=== PATIENT | female | born 1970 | race Caucasian/White ===

== ENCOUNTER 2020-07-22 20:01 | Emergency (ER) | payer MEDICAID ==
[~2020-07-22] VITALS: Ht 167.6 cm; Wt 122.5 kg
[2020-07-22] MEDS ORDERED: TESSALON PERLE100 MG ORAL (20:17)
[2020-07-22] MEDS ORDERED: ACETAMINOPHEN500 M3 ORAL (20:17)
--- NOTE | 2020-07-22 20:20 | NUR ---
Note basiliaone in EDM - 07/22/20 at 2310 by [email or web address] ED Nurse Note: Patient walked into the ED from home with c/o generalized body aches onset 3 days ago. Pt has hx of hypertension and diabetes but was not med compliant because of meds running out due to insurance. Patient denies SOB//CP, fever/chills, N/V/D. Patient is AAOx4 and ambulatory. Triage BP 218/1145 Patient walked into ED c/o general body aches onset for the past 3 days now. denies any fevers or chills. blood pressure currently at 218/115, states that she has been unable to take BP meds for quite some time due to running out
--- NOTE | 2020-07-22 20:20 | NUR ---
ED Nurse Note: Patient walked into the ED from home with c/o generalized body aches onset 3 days ago. Pt has hx of hypertension and diabetes but was not med compliant because of meds running out due to insurance. Patient denies SOB//CP, fever/chills, N/V/D. Patient is AAOx4 and ambulatory. Triage BP 218/145, BS 268.
--- NOTE | 2020-07-22 20:21 | NUR ---
ED Nurse Note: ERMD at bedside
[2020-07-22 20:30] VITALS: BP 156/84
--- NOTE | 2020-07-22 20:30 | NUR ---
ED Nurse Note: Blood and urine sent
[2020-07-22] MEDS ORDERED: Ketorolac 30mg Inj IV ONE (20:45)
[2020-07-22] MEDS ORDERED: Labetalol 5mg/ml 20ml vial IV ONE (20:45)
--- NOTE | 2020-07-22 21:01 | Diagnostic Imaging Report ---
EXAM: XR Chest, 1 View CLINICAL HISTORY: CP TECHNIQUE: Frontal view of the chest. COMPARISON: No relevant prior studies available. FINDINGS: Lungs: Low lung volumes with bronchovascular crowding. No consolidation, pleural effusion, or pneumothorax. Pleural space: See above. Heart: Cardiomegaly. Mediastinum: Unremarkable. Bones/joints: No acute abnormality IMPRESSION: 1. Low lung volumes with bronchovascular crowding. 2. Cardiomegaly. 3. Otherwise no acute cardiopulmonary disease. 4. If there is continued concern, consider frontal and lateral chest radiographs or CT.
[2020-07-22 21:03] LABS: BASOPHILS % (AUTO) 1.1 % (0.0-2.0); EOSINOPHILS % (AUTO) 0.4 % (0.0-3.0); HEMATOCRIT 46.4 % (37.0-47.0); HEMOGLOBIN 16.8 G/DL (12.0-16.0); LYMPHOCYTES % (AUTO) 21.6 % (20.0-45.0); MEAN CORPUSCULAR VOLUME 85 FL (80-99); MONOCYTES % (AUTO) 10.9 % (1.0-10.0); PLATELET COUNT 125 K/UL (150-450); RED BLOOD COUNT 5.45 M/UL (4.20-5.40); RED CELL DISTRIBUTION WIDTH 12.6 % (11.6-14.8); WHITE BLOOD COUNT 4.2 K/UL (4.8-10.8)
[2020-07-22 21:04] LABS: BILIRUBIN, URINE NEGATIVE (NEGATIVE); GLUCOSE, URINE (UA) 3+ (NEGATIVE); KETONES,URINE 1+ (NEGATIVE); LEUKOCYTE ESTERASE ,URINE 2+ (NEGATIVE); NITRITE,URINE NEGATIVE (NEGATIVE); PH,URINE 6 (4.5-8.0); PROTEIN,URINE 4+ (NEGATIVE); UROBILINOGEN,URINE NORMAL MG/DL (0.0-1.0)
[2020-07-22 21:07] LABS: APPEARANCE,URINE SLIGHTLY CLOUDY; COLOR,URINE YELLOW
[2020-07-22 21:14] LABS: ANION GAP 6 mmol/L (5-15); BLOOD UREA NITROGEN 17 mg/dL (7-18); CALCIUM 8.9 MG/DL (8.5-10.1); CARBON DIOXIDE 31 MMOL/L (21-32); CHLORIDE 93 MMOL/L (98-107); CREATININE 0.8 MG/DL (0.55-1.30); POTASSIUM 3.7 MMOL/L (3.5-5.1); SODIUM 130 MMOL/L (136-145)
[2020-07-22] MEDS ORDERED: cefTRIAXone 1 GM in NS 55 ML IVPB ONE (21:15)
--- NOTE | 2020-07-22 21:15 | Emergency Room Report ---
History of Present Illness General Chief Complaint: General Complaint Source: Patient Present Illness HPI 49-year-old female with history of type 2 diabetes and hypertension here with 1 week of generalized malaise. Patient says that she has felt unwell for 1 week but it worsened today. Patient is positive metformin and several antihypertensives but does not take these medications secondary to a loss of insurance. Has not taken her medications in several months. Says she is only complaining of generalized malaise. 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 No fevers, chills, chest pain, palpitations, shortness breath, cough, back pain, abdominal pain, nausea, vomiting, diarrhea, dysuria. Allergies: Coded Allergies: No Known Allergies (Unverified , 07/22/20) COVID-19 Screening Contact w/high risk pt: No Experienced COVID-19 symptoms?: No COVID-19 Testing performed CAR KNOCKER: No Patient History Last Menstrual Period: n/a Nursing Documentation-H Past Medical History: No History, Except For Hx Hypertension: Yes Hx Diabetes: Yes Hx Cancer: Yes - ovarian Review of Systems All Other Systems: negative except mentioned in HPI Physical Exam Vital Signs Date Time Temp Pulse Resp B/P (MAP) Pulse Ox O2 Delivery O2 Flow Rate FiO2 07/22/20 20:16 99.3 80 18 218/115 (149) 93 Room Air Sp02 EP Interpretation: reviewed, normal General Appearance: no apparent distress, alert, non-toxic Head: normocephalic, atraumatic Eyes: bilateral eye normal inspection, bilateral eye PERRL ENT: hearing grossly normal, normal pharynx, no angioedema, normal voice Neck: full range of motion, supple/symm/no masses Respiratory: chest non-tender, lungs clear, normal breath sounds, speaking full sentences Cardiovascular #1: regular rate, rhythm, no edema Cardiovascular #2: 2+ carotid (R), 2+ carotid (L), 2+ radial (R), 2+ radial (L), 2+ dorsalis pedis (R), 2+ dorsalis pedis (L) Gastrointestinal: normal bowel sounds, non tender, soft, non-distended, no guarding, no rebound Rectal: deferred Genitourinary: normal inspection, no CVA tenderness Musculoskeletal: back normal, normal range of motion, gait/station normal, non- tender Neurologic: alert, motor strength/tone normal, oriented x3, sensory intact, responsive, speech normal Psychiatric: judgement/insight normal, memory normal, mood/affect normal, no suicidal/homicidal ideation Lymphatic: no adenopathy Medical Decision Making Diagnostic Impression: Primary Impression: Flu-like symptoms Additional Impressions: COVID-19 Hypertension UTI (urinary tract infection) ER Course Laboratory Tests Test 07/22/20 20:35 White Blood Count 4.2 K/UL (4.8-10.8) L Red Blood Count 5.45 M/UL (4.20-5.40) H Hemoglobin 16.8 G/DL (12.0-16.0) H Hematocrit 46.4 % (37.0-47.0) Mean Corpuscular Volume 85 FL (80-99) Mean Corpuscular Hemoglobin 30.9 PG (27.0-31.0) Mean Corpuscular Hemoglobin Concent 36.3 G/DL (32.0-36.0) H Red Cell Distribution Width 12.6 % (11.6-14.8) Platelet Count 125 K/UL (150-450) L Mean Platelet Volume 8.7 FL (6.5-10.1) Neutrophils (%) (Auto) 66.0 % (45.0-75.0) Lymphocytes (%) (Auto) 21.6 % (20.0-45.0) Monocytes (%) (Auto) 10.9 % (1.0-10.0) H Eosinophils (%) (Auto) 0.4 % (0.0-3.0) Basophils (%) (Auto) 1.1 % (0.0-2.0) Urine Color Yellow Urine Appearance Slightly cloudy Urine pH 6 (4.5-8.0) Urine Specific [place] 1.015 (1.005-1.035) Urine Protein 4+ (NEGATIVE) H Urine Glucose (UA) 3+ (NEGATIVE) H Urine Ketones 1+ (NEGATIVE) H Urine Blood 1+ (NEGATIVE) H Urine Nitrite Negative (NEGATIVE) Urine Bilirubin Negative (NEGATIVE) Urine Urobilinogen Normal MG/DL (0.0-1.0) Urine Leukocyte Esterase 2+ (NEGATIVE) H Urine RBC 2-4 /HPF (0 - 2) H Urine WBC 15-20 /HPF (0 - 2) H Urine Squamous Epithelial Cells Moderate /LPF (NONE/OCC) H Urine Bacteria Moderate /HPF (NONE) H Urine Yeast Few /HPF (NONE) H Urine HCG, Qualitative Negative (NEGATIVE) Sodium Level 130 MMOL/L (136-145) L Potassium Level 3.7 MMOL/L (3.5-5.1) Chloride Level 93 MMOL/L (98-107) L Carbon Dioxide Level 31 MMOL/L (21-32) Anion Gap 6 mmol/L (5-15) Blood Urea Nitrogen 17 mg/dL (7-18) Creatinine 0.8 MG/DL (0.55-1.30) Estimated Glomerular Filtration Rate > 60 mL/min (>60) Glucose Level 242 MG/DL (74-106) H Calcium Level 8.9 MG/DL (8.5-10.1) Magnesium Level 1.8 MG/DL (1.8-2.4) Total Bilirubin 0.4 MG/DL (0.2-1.0) Aspartate Amino Transferase (AST) 38 U/L (15-37) H Alanine Aminotransferase (ALT) 54 U/L (12-78) Alkaline Phosphatase 98 U/L (46-116) Troponin I 0.049 ng/mL (0.000-0.056) Total Protein 8.2 G/DL (6.4-8.2) Albumin 3.1 G/DL (3.4-5.0) L Globulin 5.1 g/dL Albumin/Globulin Ratio 0.6 (1.0-2.7) L Acetone Level Negative (NEGATIVE) Microbiology Date/Time Source Procedure Growth Status 07/22/20 21:00 Nasopharynx SARS-CoV-2 RdRp Gene Assay - Final Complete EXAM: XR Chest, 1 View CLINICAL HISTORY: CP TECHNIQUE: Frontal view of the chest. COMPARISON: No relevant prior studies available. FINDINGS: Lungs: Low lung volumes with bronchovascular crowding. No consolidation, pleural effusion, or pneumothorax. Pleural space: See above. Heart: Cardiomegaly. Mediastinum: Unremarkable. Bones/joints: No acute abnormality IMPRESSION: 1. Low lung volumes with bronchovascular crowding. 2. Cardiomegaly. 3. Otherwise no acute cardiopulmonary disease. 4. If there is continued concern, consider frontal and lateral chest radiographs or CT. EKG: NSR, Q waves in V1 and V2, intervals WNL. No ectopy Rhythm strip: patient monitored for arrhythmias - no malignant dysrhythmias, runs of PVCs, nor pauses noted 49-year-old female here with generalized malaise. Patient was hemodynamically stable in the emergency department. She was however highly hypertensive and giv en 20 mg of labetalol IV with good resolution of her hypertension. She said that she used to take antihypertensives but has run out of her medication months ago and has not refilled her medication or followed up with her doctor. Glucose was elevated but patient had no evidence of DKA. Acetone negative. VBG was normal. CBC, CMP, troponin all generally unremarkable. Chest x-ray normal. Covid swab was positive however. Patient however exhibited no evidence of respiratory distress whatsoever and had normal oxygen saturation on room air throughout her stay in the emergency department. She is stable for discharge at this time. She was told to return to the emergency department if she has any worsening symptoms or any shortness of breath whatsoever. She expressed understanding. She was given a prescription for hydrochlorothiazide, Tylenol. She did have evidence of urinary tract infection and was given a dose of ceftriaxone in the emergency department and given a prescription for Keflex. She was told to come back to the ER with any worsening symptoms. Told to socially distance for 2 weeks. Discharged in stable condition. Last Vital Signs Date Time Temp Pulse Resp B/P (MAP) Pulse Ox O2 Delivery O2 Flow Rate FiO2 07/22/20 20:59 84 214/107 07/22/20 20:16 99.3 18 93 Room Air Scripts Cephalexin* (KEFLEX*) 500 Mg Capsule 500 MG ORAL EVERY 12 HOURS, #14 CAP 0 Refills Prov: Juan Hudson M.D. 07/22/20 Hydrochlorothiazide* (HYDROCHLOROTHIAZIDE*) 25 Mg Tablet 25 MG ORAL DAILY for Hypertension for 30 Days, TAB Prov: Juan Hudson M.D. 07/22/20 Acetaminophen* (ACETAMINOPHEN EXTRA STRENGTH*) 500 Mg Tablet 500 MG ORAL Q6H for 5 Days, TAB Prov: Juan Hudson M.D. 07/22/20 Benzonatate* (TESSALON PERLE*) 100 Mg Capsule 100 MG ORAL THREE TIMES A DAY for 5 Days, PERLE Prov: Juan Hudson M.D. 07/22/20 Referrals: [facility] Patient Instructions: Upper Respiratory Infection, Adult Additional Instructions: You likely have COVID-19. Please get tested for COVID-19 at an outpatient testing center. Come back to the emergency department if you have shortness of breath. Juan Hudson M.D. Jul 22, 2020 21:15
[2020-07-22 21:19] LABS: ALANINE AMINOTRANSFERASE 54 U/L (12-78); ALBUMIN 3.1 G/DL (3.4-5.0); ALBUMIN/GLOBULIN RATIO 0.6 (1.0-2.7); ALKALINE PHOSPHATASE 98 U/L (46-116); ASPARTATE AMINO TRANSFERASE 38 U/L (15-37); BILIRUBIN,TOTAL 0.4 MG/DL (0.2-1.0)
[2020-07-22] MEDS ORDERED: CEPHALEXIN500 MG ORAL (21:43)
[2020-07-22] MEDS ORDERED: HYDROCHLOROTHIA25 MG ORAL (21:43)
[2020-07-22] MEDS ORDERED: Hydrogen Peroxide 473ml Bottle TOPIC ONE (21:45)
[2020-07-22 22:30] VITALS: BP 152/84
--- NOTE | 2020-07-22 22:30 | NUR ---
ER DISCHARGE NOTE: Patient is cleared to be discharged per ERMD, pt is aox4, on room air, with stable vital signs. pt was given dc and prescription instructions, pt was able to verbalize understanding, pt id band and iv site removed without complications. pt is able to ambulate with steady gait. pt took all belongings.
== END 2020-07-22 22:40 | disposition home or self-care (01) ==
LOC: EMR 20:15
DX: U07.1 COVID-19 (principal); J11.1 Influenza due to unidentified influenza virus with other respiratory manifestations; I10 Essential (primary) hypertension; N39.0 Urinary tract infection, site not specified; E11.9 Type 2 diabetes mellitus without complications; Z85.43 Personal history of malignant neoplasm of ovary
CPT/HCPCS: 36415; 71045; 80053; 81003; 81025; 82009; 83735; 84484; 85025; 87086; 93005; 96361; 96365; 96375; J0696; J1885; U0002; Z7502; 99284